=== PATIENT | female | born 1990 | race Native Hawaiian/Other Pacific Islander ===

== ENCOUNTER 2018-12-04 08:37 | Outpatient (CLI) | payer BC | END 2018-12-04 19:14 | disposition home or self-care (01) | LOC: US 08:37 | DX: R94.5 Abnormal results of liver function studies (principal) ==

== ENCOUNTER 2020-12-29 09:13 | Outpatient (CLI) | payer BC | END 2020-12-29 19:24 | disposition home or self-care (01) | LOC: RAD 09:13 | PROVIDERS: ATTEND Nurse Practitioner Family | DX: M25.562 Pain in left knee (principal) ==

== ENCOUNTER 2021-01-16 08:53 | Outpatient (CLI) | payer BC | END 2021-01-16 19:53 | disposition home or self-care (01) | LOC: MRI 08:53 | PROVIDERS: ATTEND Registered Nurse | DX: M25.562 Pain in left knee (principal) ==